=== PATIENT | female | born 1950 | race Caucasian/White ===

== ENCOUNTER 2017-11-03 11:01 | Emergency (ER) | payer OTHER ==
[~2017-11-03] VITALS: Ht 162.6 cm; Wt 65.5 kg
[2017-11-03 11:43] VITALS: Ht 162.6 cm; Wt 65.5 kg
[2017-11-03 15:31] VITALS: BP 140/87
== END 2017-11-03 15:31 | disposition home or self-care (01) ==
LOC: ED 11:01
DX: S52.512A Displaced fracture of left radial styloid process, initial encounter for closed fracture (principal); I10 Essential (primary) hypertension; W17.89XA Other fall from one level to another, initial encounter; Y93.89 Activity, other specified; Y92.89 Other specified places as the place of occurrence of the external cause; Y99.8 Other external cause status
CPT/HCPCS: J2001; J2060; Q0092